=== PATIENT | female | born 1935 | race Caucasian/White ===

== ENCOUNTER 2020-06-11 19:29 | Emergency (ER) | payer OTHER ==
[~2020-06-11] VITALS: Ht 162.6 cm; Wt 56.7 kg
[~2020-06-11 19:29] MED LIST: AZIT500 PO; BLOOD PRESSURE MEDS; CRUTCH2 USE; Crutch1 EACH MISC; HYDACE5 PO; HYDR1TAB94 PO; IBUP400 PO; POTBIC25; THYROID MEDS
== END 2020-06-11 20:23 | disposition home or self-care (01) ==
LOC: ER 19:29
DX: T17.928A Food in respiratory tract, part unspecified causing other injury, initial encounter (principal); I10 Essential (primary) hypertension; Z88.0 Allergy status to penicillin; Z88.1 Allergy status to other antibiotic agents
CPT/HCPCS: 99283

== ENCOUNTER → 2021-02-15 | Outpatient (CLI) | payer OTHER ==
[~2021-02-15] MED LIST changes: +ASPI81CH PO; +FAMO20 PO; +Isosorbide Mono30 MG PO; +LEVSOD75 PO; +LOSA50 PO; +METO50ER PO; +NITR.4SL SL; +ROSU10TA PO; +[UNRECOGNIZED DRUG - OTHER] OP
== END ==
LOC: LAB SHORT 14:10 → LAB 14:10
DX: L08.9 Local infection of the skin and subcutaneous tissue, unspecified (principal); Z48.817 Encounter for surgical aftercare following surgery on the skin and subcutaneous tissue; Z48.02 Encounter for removal of sutures
CPT/HCPCS: 87070; 87077; 87186; 87205

== ENCOUNTER 2021-04-18 05:59 | Day surgery (SDC) | payer OTHER ==
[~2021-04-18] VITALS: Ht 162.6 cm; Wt 58.1 kg
[~2021-04-18 05:59] MED LIST changes: -ASPI81CH PO; -FAMO20 PO; -Isosorbide Mono30 MG PO; -LEVSOD75 PO; -LOSA50 PO; -METO50ER PO; -NITR.4SL SL; -ROSU10TA PO; -[UNRECOGNIZED DRUG - OTHER] OP
[2021-04-18] MEDS ORDERED: FAMO20 PO (06:32)
[2021-04-18] MEDS ORDERED: ASPI81CH PO (06:32)
[2021-04-18] MEDS ORDERED: LOSA50 PO (06:33)
[2021-04-18] MEDS ORDERED: LEVSOD75 PO (06:33)
[2021-04-18] MEDS ORDERED: Isosorbide Mono30 MG PO (06:33)
[2021-04-18] MEDS ORDERED: METO50ER PO (06:34)
[2021-04-18] MEDS ORDERED: NITR.4SL SL (06:35)
[2021-04-18] MEDS ORDERED: ROSU10TA PO (06:36)
[2021-04-18] MEDS ORDERED: [UNRECOGNIZED DRUG - OTHER] OP (06:36)
--- NOTE | 2021-04-18 07:59 | NUR ---
DR PICHARDO AT BEDSIDE TO DISCUSS PLAN OF CARE WITH PATIENT AND FAMILY. TR BAND REMAINS ON RIGHT WRIST WITH AIR IN, ARM BOARD ON. SITE APPEARS SOFT NON TENDER WITH NO BLEEDING, OOZING, OR PAIN. TOLERATES PO FLUIDS WITH NO DIFFICULTIES. CALL LIGHT IN REACH.
--- NOTE | 2021-04-18 09:16 | NUR ---
ATTEMPTED TO REMOVED AIR FROM TR BAND, AFTER 4 CC AIR REMOVED OVER 15 MINUTES, PT REPORTS DISCOMFORT TO RIGHT WRIST, HEMATOMA NOTED, SECOND TR BAND PLACED ON RIGHT WRIST WITH 10 CC AIR IN, ARM BOARD REMAINS ON. PT TOLERATES WELL. DENIES CHEST PAIN. WILL CONTINUE TO MONITOR.
--- NOTE | 2021-04-18 09:49 | NUR ---
RIGHT WRIST RE-EVALUATED, BOTH TR BANDS REMAIN IN PLACE WITH AIR IN. DAUGHTER REMAINS AT BEDSIDE. DISCHARGE INSTRUCTIONS HAVE BEEN REVIEWED AND PROVIDED IN FOLDER. VSS. CALL LIGHT IN REACH.
--- NOTE | 2021-04-18 10:26 | NUR ---
BOTH TR BANDS FULLY DEFLATED, REMAIN IN PLACE. PT REPORTS HAND FEELING "BETTER", CAP REFILL >3, HANDS COOL TO TOUCH. SPO2 97% ON ROOM AIR ON RIGHT HAND. WILL CONTINUE TO MONITOR.
--- NOTE | 2021-04-18 11:11 | NUR ---
BOTH TR BANDS REMOVED FROM RIGHT WRIST, RED CLOTH DOT DRESSING APPLIED OVER INCISION SITE. PRESSURE DRESSING PLACED ON RIGHT WRIST FOR EXTRA SUPPORT OVER REGION WITH PREVIOUS HEMATOMA. VERBAL INSTRUCTIONS PROVIDED TO PT AND DAUGHTER ON REMOVAL OF PRESSURE DRESSING TONIGHT. BOTH STATE UNDERSTANDING. DISCHARGE REVIEWED AGAIN PRIOR TO LEAVING UNIT. PAPERWORK PROVIDED IN FOLDER. IV REMOVED WITH CATH INTACT, PRESSURE DRESSING APPLIED. PT PREVIOUSLY AMBULATED TO RESTROOM WITH SLOW STEADY GAIT. UNMEASURED VOID. PT DENIES CP OR SOB. ENCOURAGED TO FOLLOW UP WITH PROVIDERS SCHEDULED. ALL PERSONAL BELONGINGS SENT HOME WITH PT. TAKEN OUT TO PRIVATE VEHICLE TO DISCHARGE HOME WITH DAUGHTER, NO ACUTE DISTRESS NOTED.
== END 2021-04-18 10:35 | disposition home or self-care (01) ==
LOC: MHTC 05:59
DX: I20.0 Unstable angina (principal); R94.39 Abnormal result of other cardiovascular function study; I10 Essential (primary) hypertension; E78.5 Hyperlipidemia, unspecified; K21.9 Gastro-esophageal reflux disease without esophagitis; E03.9 Hypothyroidism, unspecified; G30.9 Alzheimer's disease, unspecified; F02.80 Dementia in other diseases classified elsewhere, unspecified severity, without behavioral disturbance, psychotic disturbance, mood disturbance, and anxiety; Z79.82 Long term (current) use of aspirin; Z88.5 Allergy status to narcotic agent; Z88.0 Allergy status to penicillin; Z88.6 Allergy status to analgesic agent
CPT/HCPCS: 76937; 93454; 99152; C1769; C1887; C1894; J1644; J3010; J7030; J7050; Q9967

== ENCOUNTER → 2021-08-15 | Outpatient (CLI) | payer OTHER ==
[~2021-08-15] MED LIST changes: +ASPI81CH PO; +FAMO20 PO; +Isosorbide Mono30 MG PO; +LEVSOD75 PO; +LOSA50 PO; +METO50ER PO; +NITR.4SL SL; +ROSU10TA PO; +[UNRECOGNIZED DRUG - OTHER] OP
[2021-08-15 13:55] LABS: Source, Urine Clean Catch
[2021-08-15 15:22] LABS: Appearance, Urine Hazy (Clear); Bilirubin, Urine Neg (Neg); Blood, Urine 3+ (Neg); Color, Urine Yellow (P-Yellow); Glucose Qualitative, Urine Neg (Neg); Ketones, Urine Neg (Neg); Leukocyte Esterase, Urine 1+ (Neg); Nitrite, Urine Neg (Neg); Protein, Urine 2+ (Neg); Specific Gravity, Urine 1.025 (1.003-1.022); Urobilinogen, Urine 1+ (Normal)
[2021-08-15 15:36] LABS: Calcium Oxalate Crystals Many /hpf; White Blood Cells, Urine 0-2 /hpf (0-5)
[2021-08-15 15:37] LABS: Bacteria Few /hpf; Squamous Epithelial Cells Few /hpf (Few)
== END | disposition home or self-care (01) ==
LOC: LAB SHORT 13:54 → LAB 13:54 → EDSTATUS 15:35
PROVIDERS: Internal Medicine
DX: R10.2 Pelvic and perineal pain (principal)
CPT/HCPCS: 81001; 87086

== ENCOUNTER 2021-08-28 11:15 | Emergency (ER) | payer OTHER ==
[~2021-08-28] VITALS: Ht 157.5 cm; Wt 55.3 kg
[2021-08-28 12:59] LABS: BASOPHILS ABSOLUTE AUTO 0.03 K/mm3 (0.00-0.23); BASOPHILS PERCENT AUTO 1 % (0-2); EOSINOPHILS ABSOLUTE AUTO 0.25 K/mm3 (0.00-0.68); EOSINOPHILS PERCENT AUTO 4 % (0-6); Hematocrit 39.2 % (33.0-51.0); Hemoglobin 12.5 g/dL (11.5-16.0); IMMATURE GRAN ABSOLUTE AUTO 0.03 K/mm3 (0.00-0.10); IMMATURE GRAN PERCENT AUTO 1 % (0-1); LYMPHOCYTES ABSOLUTE AUTO 1.48 K/mm3 (0.84-5.20); LYMPHOCYTES PERCENT AUTO 25 % (21-46); MONOCYTES ABSOLUTE AUTO 0.48 K/mm3 (0.16-1.47); MONOCYTES PERCENT AUTO 8 % (4-13); Mean Corpuscular HGB 31.1 pg (26.0-34.0); Mean Corpuscular HGB Conc 31.9 g/dL (31.5-36.5); Mean Corpuscular Volume 98 fL (80-100); Mean Platelet Volume 10.5 fL (9.1-12.4); NEUTROPHILS ABSOLUTE AUTO 3.59 K/mm3 (1.96-9.15); NEUTROPHILS PERCENT AUTO 61 % (41-73); Platelet Count 169 K/mm3 (150-400); RDW Coefficient Variation 13.9 % (11.7-14.2); RDW Standard Deviation 50.5 fL (35.1-46.3); Red Blood Cell Count 4.02 M/mm3 (3.80-5.20); White Blood Cell Count 5.86 K/mm3 (4.00-11.30)
[2021-08-28 13:00] LABS: Albumin, Blood 3.8 g/dL (3.4-5.0); Bilirubin, Total 0.7 mg/dL (0.1-1.0); Bun/Creatinine Ratio 20.1 (12.0-20.0); Calcium, Blood 10.3 mg/dL (8.5-10.1); Creatinine, Blood 0.75 mg/dL (0.40-1.00); Globulin, Blood 3.9 g/dL (2.2-4.0); Potassium, Blood 3.4 mmol/L (3.5-5.5); Total Protein, Blood 7.7 g/dL (6.4-8.2)
[2021-08-28 16:23] LABS: Source, Urine Clean Catch
[2021-08-28 16:56] LABS: Appearance, Urine Clear (Clear); Bilirubin, Urine Neg (Neg); Blood, Urine Neg (Neg); Color, Urine Yellow (P-Yellow); Glucose Qualitative, Urine Neg (Neg); Ketones, Urine Neg (Neg); Leukocyte Esterase, Urine Neg (Neg); Nitrite, Urine Neg (Neg); Protein, Urine Neg (Neg); Specific Gravity, Urine 1.015 (1.003-1.022); Urobilinogen, Urine NORM (Normal)
== END 2021-08-28 18:00 | disposition home or self-care (01) ==
LOC: ER 11:15
PROVIDERS: Student in an Organized Health Care Education/Training Program
DX: R10.13 Epigastric pain (principal); I10 Essential (primary) hypertension; I25.10 Atherosclerotic heart disease of native coronary artery without angina pectoris; E03.9 Hypothyroidism, unspecified; F03.90 Unspecified dementia, unspecified severity, without behavioral disturbance, psychotic disturbance, mood disturbance, and anxiety; Z95.5 Presence of coronary angioplasty implant and graft; Z79.899 Other long term (current) drug therapy; Z79.82 Long term (current) use of aspirin; Z88.6 Allergy status to analgesic agent; Z88.5 Allergy status to narcotic agent; Z88.0 Allergy status to penicillin; Z88.8 Allergy status to other drugs, medicaments and biological substances
CPT/HCPCS: 36415; 71045; 76705; 80053; 81003; 84484; 85025; 93005; 93010; 99284-25; A9270

== ENCOUNTER → 2022-01-26 | Outpatient (CLI) | payer OTHER | END | disposition home or self-care (01) | LOC: LAB 19:21 → LAB SHORT 19:21 | DX: N39.0 Urinary tract infection, site not specified (principal) | CPT/HCPCS: 87086 ==

== ENCOUNTER → 2022-01-29 | Outpatient (CLI) | payer OTHER | END | disposition home or self-care (01) | LOC: LAB 16:19 → LAB SHORT 16:19 | DX: N39.0 Urinary tract infection, site not specified (principal) | CPT/HCPCS: 87086 ==

== ENCOUNTER 2022-07-29 17:11 | Emergency (ER) | payer OTHER ==
[~2022-07-29] VITALS: Ht 160 cm; Wt 56.7 kg
[2022-07-29 18:45] VITALS: BP 137/65
== END 2022-07-29 18:52 | disposition home or self-care (01) ==
LOC: ER 17:11
DX: R13.10 Dysphagia, unspecified (principal); K56.609 Unspecified intestinal obstruction, unspecified as to partial versus complete obstruction; I10 Essential (primary) hypertension; Z88.0 Allergy status to penicillin; Z88.5 Allergy status to narcotic agent; Z88.6 Allergy status to analgesic agent; Z79.899 Other long term (current) drug therapy; Z79.82 Long term (current) use of aspirin
CPT/HCPCS: 70360; 71046; J1610

== ENCOUNTER 2022-09-15 19:33 | Emergency (ER) | payer OTHER ==
[~2022-09-15] VITALS: Ht 157.5 cm; Wt 54.4 kg
[2022-09-15 19:44] VITALS: BP 157/78
== END 2022-09-15 21:20 | disposition home or self-care (01) ==
LOC: ER 19:33
DX: T18.128A Food in esophagus causing other injury, initial encounter (principal); I10 Essential (primary) hypertension; E03.9 Hypothyroidism, unspecified; Z88.0 Allergy status to penicillin; Z88.5 Allergy status to narcotic agent; Z88.6 Allergy status to analgesic agent; Z88.8 Allergy status to other drugs, medicaments and biological substances; Z79.82 Long term (current) use of aspirin; Z79.890 Hormone replacement therapy; Z79.899 Other long term (current) drug therapy
CPT/HCPCS: 99282

== ENCOUNTER 2022-09-20 21:08 | Emergency (ER) | payer OTHER ==
[~2022-09-20] VITALS: Ht 167.6 cm; Wt 79.4 kg
[2022-09-20 21:18] VITALS: BP 146/80
== END 2022-09-20 21:50 | disposition home or self-care (01) ==
LOC: ER 21:08
DX: S60.212A Contusion of left wrist, initial encounter (principal); I10 Essential (primary) hypertension; E03.9 Hypothyroidism, unspecified; Z85.3 Personal history of malignant neoplasm of breast; Z88.0 Allergy status to penicillin; Z88.6 Allergy status to analgesic agent; Z88.5 Allergy status to narcotic agent; Z79.82 Long term (current) use of aspirin; Z79.52 Long term (current) use of systemic steroids; Z79.899 Other long term (current) drug therapy; W54.1XXA Struck by dog, initial encounter
CPT/HCPCS: 73100; 99283-25

== ENCOUNTER → 2023-04-17 | Outpatient (CLI) | payer OTHER ==
[2023-04-17 14:49] LABS: BASOPHILS ABSOLUTE AUTO 0.04 K/mm3 (0.00-0.23); BASOPHILS PERCENT AUTO 1 % (0-2); EOSINOPHILS ABSOLUTE AUTO 0.18 K/mm3 (0.00-0.68); EOSINOPHILS PERCENT AUTO 4 % (0-6); Hematocrit 42.9 % (33.0-51.0); Hemoglobin 13.9 g/dL (11.5-16.0); IMMATURE GRAN ABSOLUTE AUTO 0.01 K/mm3 (0.00-0.10); IMMATURE GRAN PERCENT AUTO 0 % (0-1); LYMPHOCYTES ABSOLUTE AUTO 1.63 K/mm3 (0.84-5.20); LYMPHOCYTES PERCENT AUTO 35 % (21-46); MONOCYTES ABSOLUTE AUTO 0.32 K/mm3 (0.16-1.47); MONOCYTES PERCENT AUTO 7 % (4-13); Mean Corpuscular HGB 31.4 pg (26.0-34.0); Mean Corpuscular HGB Conc 32.4 g/dL (31.5-36.5); Mean Corpuscular Volume 97 fL (80-100); Mean Platelet Volume 10.3 fL (9.1-12.4); NEUTROPHILS ABSOLUTE AUTO 2.42 K/mm3 (1.96-9.15); NEUTROPHILS PERCENT AUTO 53 % (41-73); Platelet Count 186 K/mm3 (150-400); RDW Coefficient Variation 14.9 % (11.7-14.2); RDW Standard Deviation 53.4 fL (35.1-46.3); Red Blood Cell Count 4.43 M/mm3 (3.80-5.20)
[2023-04-17 15:04] LABS: Albumin, Blood 4.6 g/dL (3.4-5.0); Albumin/Globulin Ratio 1.2 (0.8-1.8); Bilirubin, Total 0.4 mg/dL (0.1-1.0); Bun/Creatinine Ratio 19.6 (12.0-20.0); Calcium, Blood 10.2 mg/dL (8.5-10.1); Creatinine, Blood 0.92 mg/dL (0.40-1.00); Globulin, Blood 3.8 g/dL (2.2-4.0); Total Protein, Blood 8.4 g/dL (6.4-8.2)
== END | disposition home or self-care (01) ==
LOC: LAB SHORT 14:44
PROVIDERS: Physician Assistant
DX: N39.0 Urinary tract infection, site not specified (principal); R42 Dizziness and giddiness
CPT/HCPCS: 80053; 85025; 87086

== ENCOUNTER 2023-09-03 21:36 | Emergency (ER) | payer OTHER ==
[~2023-09-03] VITALS: Ht 162.6 cm; Wt 56.7 kg
[2023-09-04 00:20] VITALS: BP 118/70
== END 2023-09-04 00:23 | disposition home or self-care (01) ==
LOC: ER 21:36
DX: S61.511A Laceration without foreign body of right wrist, initial encounter (principal); S61.512A Laceration without foreign body of left wrist, initial encounter; F03.90 Unspecified dementia, unspecified severity, without behavioral disturbance, psychotic disturbance, mood disturbance, and anxiety; I10 Essential (primary) hypertension; W07.XXXA Fall from chair, initial encounter; Z88.0 Allergy status to penicillin; Z88.5 Allergy status to narcotic agent; Z88.6 Allergy status to analgesic agent; Z88.8 Allergy status to other drugs, medicaments and biological substances; Z79.82 Long term (current) use of aspirin; Z79.890 Hormone replacement therapy; Z79.899 Other long term (current) drug therapy; Z79.52 Long term (current) use of systemic steroids
CPT/HCPCS: 70450; 72125; 93005; 93010; 99285-25